=== PATIENT | female | born 1940 | race Hispanic/Latino ===

== ENCOUNTER 2024-05-01 17:25 | Emergency (ER) | payer MEDICARE ==
[~2024-05-01] VITALS: Ht 162.6 cm; Wt 99.8 kg
[2024-05-01 17:39] VITALS: TEMP 98.4
[2024-05-01] MEDS ORDERED: HYDRALAZINE HCL25 MG PO (18:48)
[2024-05-01] MEDS ORDERED: CYCLOBENZAPRINE5 MG PO (18:48)
[2024-05-01] MEDS ORDERED: OXYBUTYNIN CHLOR5 MG PO (18:48)
[2024-05-01] MEDS ORDERED: HYDROCHLOROTHIA25 MG PO (18:48)
[2024-05-01] MEDS ORDERED: LISINOPRIL10 MG PO (18:48)
[2024-05-01 18:56] VITALS: PULSE 62; RESP 17
[2024-05-01] MEDS ORDERED: IOPAMIDOL 370 MG/ML 100 ML INFUS..BTL INJ ONE (19:22)
[2024-05-01] MEDS ORDERED: CEFTRIAXONE 1 GM VIAL ONE (20:45)
[2024-05-01] MEDS ORDERED: ZITHROMAX250 MG PO (21:01)
[2024-05-01] MEDS: CEFTRIAXONE 1 GM VIAL IM ONE (21:08)
[2024-05-01] MEDS ORDERED: AZITHROMYCIN 250 MG TAB ONE (21:15)
[2024-05-01] MEDS: AZITHROMYCIN 250 MG TAB PO SCH (21:18)
[2024-05-01 21:27] VITALS: BP 154/74; PULSE 75; RESP 18; TEMP 98.3; O2SAT 98
== END 2024-05-01 21:30 | disposition home or self-care (01) ==
LOC: FSED 17:32
DX: I10 Essential (primary) hypertension (principal); M54.9 Dorsalgia, unspecified; G89.29 Other chronic pain; R94.31 Abnormal electrocardiogram [ECG] [EKG]
CPT/HCPCS: 71045; 71260; 80053; 81003; 82553; 84484; 85025; 93005; 99284; J0696; Q9967